=== PATIENT | male | born 1985 | race American Indian/Alaskan Native ===

== ENCOUNTER 2017-10-19 14:49 | Emergency (ER) | payer OTHER ==
[2017-10-19 14:58] VITALS: BP 122/65
--- NOTE | 2017-10-19 17:00 | Emergency Department Report ---
Eye Injury/Foreign Body - HPI Duration: 4 Days Eye Location: Left Severity: None Tetanus Status: Up to Date Eye Symptoms: Eye Pain: No, Blurred Vision: No, Eye Redness: No, Grinding/ Hammering Metal: No, Used Eye Protection: No, Contact Lens Use: No, Recalls Injury: No, Photophobia: No Other History: This is a 32-year-old male nontoxic, well nourished in appearance , no acute signs of distress presents to the ED with c/o of left eye stye and one bump to the left leg region. Patient denies any trauma. Patient stated he wants to be checked for herpes because he belives this is what caused this. Patient denies any penile discharge, any ulcers, fever, chills, headache, testicular pain, testicular swelling, numbness, tachycardia, chest pain, short of breath, headache or stiff neck. She denies any allergies. Past medical history includes testicular torsion. ED Review of Systems ROS: Stated complaint: LEFT LEG HAS BUMP, EYE PROBLEMS Other details as noted in HPI Constitutional: denies: chills, fever Eyes: other (left upper eyelid stye). denies: eye pain, eye discharge, vision change ENT: denies: ear pain, throat pain Respiratory: denies: cough, shortness of breath, wheezing Cardiovascular: denies: chest pain, palpitations Endocrine: no symptoms reported Gastrointestinal: denies: abdominal pain, nausea, diarrhea Genitourinary: denies: urgency, dysuria Musculoskeletal: denies: back pain, joint swelling, arthralgia Skin: denies: rash, lesions Neurological: denies: headache, weakness, paresthesias Psychiatric: denies: anxiety, depression Hematological/Lymphatic: denies: easy bleeding, easy bruising ED Past Medical Hx - Past Medical History Previous Medical History?: Yes Additional medical history: testicular torsion - Surgical History Past Surgical History?: Yes Additional Surgical History: testicular torsion - Social History Smoking Status: Current Every Day Smoker Substance Use Type: None Eye Injury Exam - Exam General: Vital signs noted. No distress. Alert and acting appropriately. GENERAL: The patient is a well-developed, well-nourished female in no apparent distress. Patient is alert and acting appropriately for age. Alert and oriented 3, no apparent distress, normal gait, atraumatic. HEENT: Head is normocephalic and atraumatic. PERRL, Extraocular muscles are intact. Pupils are equal, round, and reactive to light and accommodation. Nares appeared normal. Mouth is well hydrated and without lesions. Mucous membranes are moist. Posterior pharynx clear of any exudate or lesions. Mouth is well hydrated and without lesions. Tonsils not erythematous or swollen. Uvula midline. Tongue elevated. Mucous members are moist. Posterior pharynx clear, no exudate or lesions. Patent airways. Left upper eyelid stye. Visual acuity 20 /20 NECK: Supple. No carotid bruits. No lymphadenopathy or thyromegaly.nontender. No meningitic signs are noted. LUNGS: Clear to auscultation. Non labor breathing. No intercostal retractions. Symmetrical with respiration, no wheezing, no rales, or crackles. HEART: Regular rate and rhythm without murmur, rubs or gallops. No reproducible. S1, S2 present, regular rate and rhythm without murmur, no rubs, no gallops. ABDOMEN: Soft, nontender, and nondistended. Positive bowel sounds. No hepatosplenomegaly was noted. No guarding or rebound tenderness, negative epigastric bruit. Negative psoas sign, negative siddiqi sign, negative McBurneys sign EXTREMITIES: Without any cyanosis, clubbing, rash, lesions or edema. Peripheral pulses intact. Capillary refill less than 2 seconds. Full range of motion bilaterally. NEUROLOGIC: Cranial nerves II through XII are grossly intact. Alert and oriented x 3. Normal gait. Symmetrical strength and sensation. Reflexes 2+ throughout. Cerebellar testing normal. GCS score of 15. PSYCHIATRIC: Normal affect with no suicidal or homicidal ideations. Skin: 1 cm circular nodular cyst to the left posterior thigh. No induration or fluctuance noted. No erythema, pus or drainage. No surrounding cellulitis. ED Course Vital Signs 10/19/17 14:55 Temperature 98.8 F Pulse Rate 105 H Respiratory 18 Rate Blood Pressure 122/65 O2 Sat by Pulse 100 Oximetry - Reevaluation(s) Reevaluation #1: 10/19/17 17:00 Patient is speaking in full sentences with no signs of distress noted. ED Medical Decision Making - Medical Decision Making This is a 32-year-old male that stated he wants herpes test due to left eye stye and a nodular cyst to the left thigh. Patient is stable and was examined by me. Pt was instructed to apply warm compresses, placed off and on for about 15 minutes at a time approximately four times per day to the left upper eyelid. Patient was directed to [facility] department of herpes exam. Patient referred to Follow-up with a primary care doctor/human services care specialist in 3-5 days or if symptoms worsen and continue return to emergency room as soon as possible. At time time of discharge, the patient does not seem toxic or ill in appearance. No acute signs of distress noted. Patient agrees to discharge treatment plan of care. No further questions noted by the patient. Critical care attestation.: If time is entered above; I have spent that time in minutes in the direct care of this critically ill patient, excluding procedure time. ED Disposition Clinical Impression: Donovan Qualifiers: Laterality: left Eyelid: upper Qualified Code(s): H00.014 - Hordeolum externum left upper eyelid Disposition: DC- TO HOME OR SELFCARE Is pt being admited?: No Does the pt Need Aspirin: No Condition: Stable Instructions: Donovan (ED) Additional Instructions: Apply warm compresses, placed off and on for about 15 minutes at a time approximately four times per day to the left eyelid. Follow-up with a primary care doctor/human services care specialist in 3-5 days or if symptoms worsen and continue return to emergency room as soon as possible. You can go to health department for Herpes exam . Referrals: PRIMARY TESSIE, [Primary Care Provider] - 3-5 Days SHONNA FLANAGAN MD [Staff Physician] - 3-5 Days NAEEM MOREIRA MD [Staff Physician] - 3-5 Days [facility] [Outside] - 3-5 Days [facility] [Outside] - 3-5 Days Forms: Work/School Release Form(ED)
== END 2017-10-19 17:13 | disposition home or self-care (01) ==
LOC: ED 14:49
DX: H00.014 Hordeolum externum left upper eyelid (principal); F17.200 Nicotine dependence, unspecified, uncomplicated; Z98.890 Other specified postprocedural states
CPT/HCPCS: 99282